=== PATIENT | female | born 1950 | race Caucasian/White ===

== ENCOUNTER 2017-11-16 05:31 | Day surgery (SDC) | payer OTHER ==
[~2017-11-16] VITALS: Ht 182.9 cm; Wt 97.5 kg
--- NOTE | ~2017-11-16 | O ---
[facility] [place] [address] OPERATIVE REPORT Name: GALI GAONA Room #: DEP [facility]#: [id number] Admission: 11/16/17 Attend Phys: Juan Ramon Galvin MD Discharge: 11/16/17 Date of : 50 Report #: [id number] THIS REPORT FOR: //name// CC: Dr. Natividad Montesinos DATE OF SERVICE: 11/16/2017 SURGEON: Juan Ramon Galvin MD MUD [employer] WORKER: None. PREOPERATIVE DIAGNOSIS: Bilateral lower lid ectropion. POSTOPERATIVE DIAGNOSIS: Bilateral lower lid ectropion. OPERATION PERFORMED: Bilateral lower lid ectropion repair. ANESTHESIA: Local with IV sedation. COMPLICATIONS: None. INDICATIONS FOR PROCEDURE: This patient has bilateral acquired lower lid ectropion with chronic tearing and discharge. The current procedures are undertaken in order to improve the patient's visual function, lacrimal outflow, and level of comfort. Informed consent was obtained to include but not limit to the risk of loss of vision, bleeding, infection, scarring, failure to improve the problem and need for further surgery. DESCRIPTION OF OPERATION: The patient was taken to the operating room where 2% Xylocaine with epinephrine mixed with equal parts of 0.75% Marcaine with Wydase was administered transcutaneously and transconjunctivally to each lower lid and lateral canthal area. The patient was then prepped and draped in the usual sterile fashion. A Damon clamp was then used to clamp the left lateral canthus following which a sharp canthotomy and cantholysis were performed. The tarsal strip was prepared laterally, removing the lash bearing portion of the redundant lid margin and the redundant tarsal plate. Hemostasis was achieved with a monopolar cautery, as it was throughout the case. The tarsal strip was then secured to the internal portion of the lateral orbital tubercle with two interrupted 5-0 Prolene sutures. The lateral canthal angle was sharply reformed as the subcutaneous structures and the skin were closed with multiple interrupted 6-0 plain gut sutures. Attention was then turned to the right side where the same procedure was [facility] [address] [place] [address] OPERATIVE REPORT Name: GALI GAONA Room #: DEP [facility]#: [id number] Admission: 11/16/17 Attend Phys: Juan Ramon Galvin MD Discharge: 11/16/17 Date of : 50 Report #: [id number] performed. The wounds were cleaned and dressed with ophthalmic antibiotic ointment. The patient was then transported to the recovery area, having tolerated the procedure well with no anesthetic or operative complications being noted. <ELECTRONICALLY SIGNED> By: Juan Ramon Galvin MD 11/20/17 0620 1202 1212 Juan Ramon Galvin MD /nt
[~2017-11-16 05:31] MED LIST: ASPIRIN81 M2 PO; B COMPLEX # 11 EACH PO; CALCIUM CITRAT1 EAC1 PO; CLONAZEPAM 0.50.5 M1 PO; CO ENZYME Q PO; FISH OIL 1,001000 M3 PO; K-DUR 20 MEQ T20 MEQ PO; LASIX 40 MG TAB40 M2 PO; MELATONIN10 M2 PO; MIRALAX17 GM PO; NEURONTIN600 MG PO; PROLIA60 MG/1 ML SUBQ; SENNA8.6 MG PO; VENTOLIN HFA 1818 GM INH; VITAMIN B-12500 MCG PO; VITAMIN C 500MG PO; VITAMIN D2000 UNIT PO; WELLBUTRIN XL300 MG PO; XALATAN2.5 ML OPHTHALMIC; ZYRTEC10 M4 PO
[2017-11-16 10:08] VITALS: BP 136/67
== END 2017-11-16 12:55 | disposition home or self-care (01) ==
LOC: OR 05:31 → TBA 05:31 → OR 12:55
DX: H02.102 Unspecified ectropion of right lower eyelid (principal); H02.105 Unspecified ectropion of left lower eyelid; F41.9 Anxiety disorder, unspecified; F32.9 Major depressive disorder, single episode, unspecified; G47.30 Sleep apnea, unspecified; I48.91 Unspecified atrial fibrillation; I25.2 Old myocardial infarction; E78.5 Hyperlipidemia, unspecified; I10 Essential (primary) hypertension; I25.10 Atherosclerotic heart disease of native coronary artery without angina pectoris; J45.909 Unspecified asthma, uncomplicated; M53.9 Dorsopathy, unspecified; E66.9 Obesity, unspecified; Z79.899 Other long term (current) drug therapy; Z88.8 Allergy status to other drugs, medicaments and biological substances; Z79.82 Long term (current) use of aspirin; Z79.51 Long term (current) use of inhaled steroids; Z90.710 Acquired absence of both cervix and uterus; Z90.49 Acquired absence of other specified parts of digestive tract; Z98.890 Other specified postprocedural states; Z98.84 Bariatric surgery status; Z98.42 Cataract extraction status, left eye; Z98.41 Cataract extraction status, right eye; Z96.653 Presence of artificial knee joint, bilateral; Z96.611 Presence of right artificial shoulder joint; Z68.29 Body mass index [BMI] 29.0-29.9, adult
CPT/HCPCS: 50010; 50101; 50386; 50398; 51636; 56527; 56531; 62110; 62850; 70005